=== PATIENT | female | born 1960 | race African-American/Black ===

== ENCOUNTER 2017-01-07 11:56 | Emergency (ER) | payer MEDICAID ==
[~2017-01-07] VITALS: Ht 157.5 cm; Wt 70.3 kg
[2017-01-07 19:20] VITALS: BP 132/68
== END 2017-01-07 19:45 | disposition home or self-care (01) ==
LOC: ER 14:30
DX: B86 Scabies (principal); J02.9 Acute pharyngitis, unspecified
CPT/HCPCS: 99283

== ENCOUNTER 2017-04-14 13:05 | Emergency (ER) | payer MEDICAID ==
[~2017-04-14] VITALS: Ht 170.2 cm; Wt 65.0 kg
[2017-04-14 13:22] VITALS: BP 135/78
[2017-04-14] MEDS ORDERED: HYDROCORTISONE 1% CREAM 30GM TOP ONE (18:45)
[2017-04-14] MEDS ORDERED: DIPHENHYDRAMINE 50MG CAPSULE PO ONE (18:45)
== END 2017-04-14 19:13 | disposition home or self-care (01) ==
LOC: ER 13:05
DX: R21 Rash and other nonspecific skin eruption (principal)
CPT/HCPCS: 99282

== ENCOUNTER 2017-07-18 18:38 | Emergency (ER) | payer MEDICAID ==
[~2017-07-18] VITALS: Ht 157.5 cm; Wt 68.0 kg
[2017-07-18] MEDS ORDERED: IBUPROFEN 600MG TABLET PO ONE (20:30)
[2017-07-18 21:08] VITALS: BP 129/81
== END 2017-07-18 22:28 | disposition home or self-care (01) ==
LOC: ER 18:38
DX: H92.03 Otalgia, bilateral (principal); R05 Cough; J02.9 Acute pharyngitis, unspecified
CPT/HCPCS: 99282

== ENCOUNTER 2018-09-18 09:44 | Emergency (ER) | payer MEDICAID ==
[~2018-09-18] VITALS: Ht 157.5 cm; Wt 66.0 kg
[2018-09-18 10:45] LABS: BASOPHILS % 0.8 % (0.0-2.0); EOSINOPHILS % 4.4 % (0.0-5.0); HEMATOCRIT. 42.2 % (36.0-48.0); HEMOGLOBIN. 13.9 g/dL (12.0-16.0); LYMPHOCYTES % 31.4 % (20.0-50.0); MEAN CORPUSCULAR HEMOGLOBIN 27.2 pg (28.0-32.0); MEAN CORPUSCULAR VOLUME 82.4 fL (81.0-99.0); MEAN PLATELET VOLUME 8.4 fl (7.4-10.4); MONOCYTES % 9.4 % (2.0-8.0); PLATELET 244 x1000/uL (130-400); RED BLOOD CELL COUNT 5.12 mill/uL (4.2-5.4); RED CELL DISTRIBUTION WIDTH 14.3 % (11.6-14.6)
[2018-09-18 10:54] LABS: PARTIAL THROMBOPLASTIN TIME 29.4 sec (23.4-31.0); PROTHROMBIN TIME 10.5 sec (9.6-11.0)
[2018-09-18 11:23] VITALS: BP 134/85
== END 2018-09-18 11:28 | disposition home or self-care (01) ==
LOC: ER 09:44
DX: K64.4 Residual hemorrhoidal skin tags (principal); I10 Essential (primary) hypertension
CPT/HCPCS: 36415; 99283

== ENCOUNTER 2020-03-29 12:49 | Emergency (ER) | payer MEDICAID ==
[~2020-03-29] VITALS: Ht 157.5 cm; Wt 64.0 kg
[2020-03-29 13:01] VITALS: BP 134/82
[2020-03-29 14:32] LABS: CLARITY URINE CLOUDY (CLEAR); COLOR URINE YELLOW (YELLOW); KETONES URINE TRACE (NEGATIVE); LEUKOCYTE ESTERASE URINE 3+ (NEGATIVE); NITRITE URINE POSITIVE (NEGATIVE); OCCULT BLOOD URINE 1+ (NEGATIVE); PROTEIN URINE NEGATIVE (NEGATIVE); SPECIFIC GRAVITY URINE 1.022 (1.005-1.030)
[2020-03-29 14:58] LABS: BASOPHILS % 0.7 % (0.0-2.0); EOSINOPHILS % 2.6 % (0.0-5.0); HEMATOCRIT. 41.6 % (36.0-48.0); HEMOGLOBIN. 13.8 g/dL (12.0-16.0); LYMPHOCYTES % 30.9 % (20.0-50.0); MEAN CORPUSCULAR HEMOGLOBIN 26.9 pg (28.0-32.0); MEAN PLATELET VOLUME 8.8 fl (7.4-10.4); MONOCYTES % 7.9 % (2.0-8.0); NEUTROPHILS % 57.9 % (40.0-76.0); PLATELET 231 x1000/uL (130-400); RED BLOOD CELL COUNT 5.13 mill/uL (4.2-5.4); RED CELL DISTRIBUTION WIDTH 14.3 % (11.6-14.6)
[2020-03-29 15:02] LABS: CHLORIDE 108 mEq/L (98-107)
[2020-03-29 15:04] LABS: PROTHROMBIN TIME 10.6 sec (9.6-11.0)
[2020-03-29] MEDS ORDERED: SULFAMETHOXAZOLE/TRIMETHOPRIM 400/80MG TAB PO NR (17:45)
== END 2020-03-29 18:31 | disposition home or self-care (01) ==
LOC: ER 13:02
DX: N39.0 Urinary tract infection, site not specified (principal); I10 Essential (primary) hypertension
CPT/HCPCS: 36415; 80053; 81003; 83880; 85025; 87077; 87186; 99283

== ENCOUNTER 2021-01-02 10:36 | Inpatient (IN) | payer MEDICAID ==
[~2021-01-02] VITALS: Ht 157.5 cm; Wt 75.8 kg
[2021-01-02] MEDS ORDERED: SODIUM CHLORIDE 0.9% 1,000 ML IV ONE (15:45)
[2021-01-02 16:30] LABS: BASOPHILS % 0.9 % (0.0-2.0); EOSINOPHILS % 6.3 % (0.0-5.0); HEMATOCRIT. 41.3 % (36.0-48.0); HEMOGLOBIN. 13.6 g/dL (12.0-16.0); LYMPHOCYTES % 41.1 % (20.0-50.0); MEAN CORPUSCULAR HEMOGLOBIN 27.3 pg (28.0-32.0); MEAN PLATELET VOLUME 8.9 fl (7.4-10.4); MONOCYTES % 6.9 % (2.0-8.0); NEUTROPHILS % 44.8 % (40.0-76.0); PLATELET 249 x1000/uL (130-400); RED BLOOD CELL COUNT 4.97 mill/uL (4.2-5.4); RED CELL DISTRIBUTION WIDTH 14.5 % (11.6-14.6)
[2021-01-02 16:31] LABS: CLARITY URINE CLEAR (CLEAR); COLOR URINE YELLOW (YELLOW); KETONES URINE NEGATIVE (NEGATIVE); LEUKOCYTE ESTERASE URINE 1+ (NEGATIVE); NITRITE URINE NEGATIVE (NEGATIVE); OCCULT BLOOD URINE 1+ (NEGATIVE); PROTEIN URINE NEGATIVE (NEGATIVE)
[2021-01-02 16:38] LABS: CHLORIDE 108 mEq/L (98-107)
[2021-01-02 16:42] LABS: PARTIAL THROMBOPLASTIN TIME 27.6 sec (23.4-31.0); PROTHROMBIN TIME 10.7 sec (9.6-11.0)
[2021-01-02] MEDS ORDERED: CEFTRIAXONE 1 G PREMIX 50 ML IV ONE (17:00)
[2021-01-02] MEDS ORDERED: ASPIRIN 325MG EC TABLET PO ONE (17:00)
[2021-01-02 23:00] VITALS: BP 121/67
[2021-01-02] MEDS ORDERED: HYDROCODONE/ACETAMINOPHEN 5/325MG TABLET PO PRN (23:00)
[2021-01-03] VITALS: BP 101/55
[2021-01-03 04:00] VITALS: BP 100/61
[2021-01-03 08:00] VITALS: BP 108/60
[2021-01-03] MEDS: METOPROLOL TARTRATE 50MG TABLET PO SCH ×2 (08:53→16:23)
[2021-01-03] MEDS ORDERED: PANTOPRAZOLE SODIUM 40 MG/VIAL IV SCH (09:00)
[2021-01-03] MEDS ORDERED: ASPIRIN 81MG TABLET PO SCH (09:00)
[2021-01-03 12:00] VITALS: BP 112/58
[2021-01-03] MEDS ORDERED: OMEP40CA20 MT (15:43)
[2021-01-03 16:00] VITALS: BP 105/63
[2021-01-03 17:39] VITALS: BP 103/68
[2021-01-03] MEDS ORDERED: NALOXONE HCL 0.4MG/ML VIAL IV PRN (17:45)
== END 2021-01-03 18:53 | disposition home or self-care (01) | DRG 241 ==
LOC: ER 10:36 → 7EST 19:34 → ENRESERV 21:11
PROVIDERS: ADMIT Internal Medicine; ATTEND Internal Medicine
DX: K29.70 Gastritis, unspecified, without bleeding (principal); E87.8 Other disorders of electrolyte and fluid balance, not elsewhere classified; E66.9 Obesity, unspecified; Z20.822 Contact with and (suspected) exposure to COVID-19; K27.9 Peptic ulcer, site unspecified, unspecified as acute or chronic, without hemorrhage or perforation; I10 Essential (primary) hypertension; Z68.30 Body mass index [BMI] 30.0-30.9, adult; Z71.3 Dietary counseling and surveillance
CPT/HCPCS: 36415; 71045; 74176; 80053; 81003; 83880; 84484; 85025; 85379; 86850; 86900; 87426; 93005; 93970; 99285; C9113; J0696; J7030

== ENCOUNTER 2024-12-21 14:28 | Emergency (ER) | payer MEDICAID, MEDICARE ==
[~2024-12-21] VITALS: Ht 162.6 cm; Wt 74.0 kg
[~2024-12-21 14:28] MED LIST: OMEP40CA20 MT
[2024-12-21 14:46] VITALS: TEMP 36.8; O2SAT 99
[2024-12-21] MEDS ORDERED: IBUP-1455 MT (19:06)
[2024-12-21] MEDS: IBUPROFEN 600MG TABLET PO ONE (19:49)
[2024-12-21 19:51] VITALS: BP 152/84; PULSE 72; RESP 16; O2SAT 97
== END 2024-12-21 20:10 | disposition home or self-care (01) ==
LOC: ER 14:28
DX: S92.512A Displaced fracture of proximal phalanx of left lesser toe(s), initial encounter for closed fracture (principal); I10 Essential (primary) hypertension; Z79.899 Other long term (current) drug therapy; X58.XXXA Exposure to other specified factors, initial encounter; Y93.01 Activity, walking, marching and hiking; Y92.89 Other specified places as the place of occurrence of the external cause; Y99.8 Other external cause status
CPT/HCPCS: 73660; 99283; Z7610